=== PATIENT | female | born 1980 | race Caucasian/White ===

== ENCOUNTER → 2018-12-09 14:07 | Outpatient (CLI) | payer BC, SELFPAY ==
[2018-12-09 14:54] LABS: D-Dimer Quantitative (DVT/PE) < 0.27 FEU/ug/m (0.27-0.49)
[2018-12-09 14:56] LABS: AST(SGOT) 9 U/L (15-37); Alanine Aminotransfer ALT/SGPT 14 U/L (13-56); Albumin, Serum 4.2 g/dL (3.2-5.0); Alkaline Phosphatase 55 U/L (45-117); Anion Gap 3 (5-15); BUN 11 mg/dL (7-18); BUN/Creat Ratio 17.5 RATIO (10-20); Calcium,Total 9.1 mg/dL (8.5-10.1); Chloride 107 mmol/L (98-107); Creatinine, Serum 0.63 mg/dL (0.55-1.02); EST Glomerular Filtration Rate 113 mL/min (>60); Est Glom Filt Rate - Afr Amer 136 mL/min (>60); Globulin 4.1 g/dL (2.2-4.2); Glucose 90 mg/dL (74-106); Magnesium 2.2 mg/dL (1.6-2.6); Potassium 3.6 mmol/L (3.5-5.1); Protein, Total 8.3 g/dL (6.4-8.2); Sodium Level 138 mmol/L (136-145); Thyroid Stim Hormone (TSH) 1.07 uIU/mL (0.358-3.74)
== END ==
PROVIDERS: Referring Provider Registered Nurse; Visit Provider Registered Nurse
DX: R07.9 Chest pain, unspecified (principal)
CPT/HCPCS: 80053; 83735; 84443; 84484; 85379

== ENCOUNTER 2018-12-12 17:37 | Emergency (ER) | payer BC, SELFPAY ==
[2018-12-12 17:37] VITALS: BP 146/94; PULSE 94; RESP 16; TEMP 37.7; O2SAT 99; BMI 18.7
--- NOTE | 2018-12-12 18:22 | EKG12_ITS ---
Test Reason : CP Blood Pressure : / mmHG Vent. Rate : 088 BPM Atrial Rate : 088 BPM P-R Int : 158 ms QRS Dur : 076 ms QT Int : 382 ms P-R-T Axes : 072 024 069 degrees QTc Int : 462 ms Normal sinus rhythm with sinus arrhythmia Septal infarct , age undetermined Abnormal ECG Confirmed by EULOGIO YOON, HARRY ([id number]), editor greeting card CURTIS RAMÍREZ ([id number]) on 12/14/2018 12:50:36 PM Referred By: Nesha Cervantes Confirmed By:HARRY KRISHNAN MD
--- NOTE | 2018-12-12 18:25 | RAD_ITS ---
STUDY: X-RAY CHEST REASON FOR EXAM: Female, 38 years old. Chest pain TECHNIQUE: Single AP portable view of the chest. COMPARISON: None. FINDINGS: The lungs are clear and expanded. There is no demonstrated pleural abnormality. Normal size heart. Normal mediastinum and lidia. Normal visualized pulmonary arteries. Normal visualized aortic arch and descending thoracic aorta. Normal visualized thoracic spine. Normal visualized ribs, clavicles, and shoulders. There is no demonstrated abnormality of the visualized soft tissue structures of the upper abdomen. RAD/Chest 1 View (Portable) IMPRESSION: Normal x-ray examination of the chest. Electronically Signed: Delroy Garcia MD at 18:55 EDT , Service support ,
--- NOTE | 2018-12-12 18:30 | ED.RN ---
NO OLD EKGS IN MUSE
[2018-12-12] MEDS: Mag Hydrox/Al Hydrox/Simeth 30 ML UDC PO (18:40)
[2018-12-12] MEDS: 0.9% Normal Saline 1,000 ML 1000 ML IV (18:40)
[2018-12-12 18:54] LABS: Absolute Lymphocyte Count 1.29 X10^3/uL (0.83-4.51); Absolute Neutrophil Count 3.5 X10^3/uL (2.0-7.7); Basophil# 0.04 X10^3/uL; Basophil% 0.8 % (0-1); Eosinophil# 0.09 X10^3/uL; Eosinophils% 1.7 % (0-5); Hemoglobin 12.8 g/dL (12.0-15.0); Lymphocyte # 1.29 X10^3/ul (4.0); Lymphocyte % 24.4 % (19-41); Mean Corp Hgb Conc 34.6 g/dL (32-36); Mean Corpuscular Hgb 32.3 pg (27.0-32.0); Mean Corpuscular Volume 93.4 fL (81-99); Mean Platelet Vol. 9.7 fl (6.2-12.0); Monocyte# 0.38 X10^3/uL; Monocyte% 7.2 % (0-10); NRBC Flagged by Analyzer 0 % (0-5); Neutrophil # 3.47 X10^3/uL (2.7-7.7); Neutrophil % 65.5 % (47-70); Platelet Count 182 K/mm3 (150-450); RBC Distribution Width CV 11.5 % (11.6-14.6); RBC Distribution Width SD 39.3 fl (35.1-43.9); Red Blood Count 3.96 M/mm3 (4.2-5.4); White Blood Count 5.3 K/mm3 (4.4-11.0)
[2018-12-12 18:59] LABS: Erythrocyte Sedimentation Rate 4 mm/hr (0-20)
[2018-12-12 19:11] LABS: Internal QC Validated? YES +Cl - CLEAR BKGD; Pregnancy, Serum, hCG Quali. NEGATIVE Negative
[2018-12-12 19:20] LABS: ALB/GLOB Ratio 0.9 RATIO (0.9-2.4); AST(SGOT) 11 U/L (15-37); Alanine Aminotransfer ALT/SGPT 14 U/L (13-56); Albumin, Serum 3.7 g/dL (3.2-5.0); Alkaline Phosphatase 49 U/L (45-117); Anion Gap 7 (5-15); BUN 12 mg/dL (7-18); BUN/Creat Ratio 13.6 RATIO (10-20); Calcium,Total 8.6 mg/dL (8.5-10.1); Chloride 109 mmol/L (98-107); Creatinine, Serum 0.88 mg/dL (0.55-1.02); EST Glomerular Filtration Rate 76 mL/min (>60); Est Glom Filt Rate - Afr Amer 92 mL/min (>60); Estimated Creatinine Clearance 76.34 ml/min; Globulin 4.1 g/dL (2.2-4.2); Glucose 121 mg/dL (74-106); Lipase 96 U/L (73-393); Potassium 3.3 mmol/L (3.5-5.1); Protein, Total 7.8 g/dL (6.4-8.2); Sodium Level 141 mmol/L (136-145); Thyroid Stim Hormone (TSH) 2.15 uIU/mL (0.358-3.74)
--- NOTE | 2018-12-12 19:32 | ED.VISSUMM ---
- ER Visit Summary Date of Service: 12/12/18 Chief Complaint: Chest pain History of Present Illness: The patient is a [address] Villanueva. She reports that over the past 10 days she has had multiple episodes of chest pain. She reports the first 1 was 10 days ago and woke her from sleep. It lasted approximately an hour. She describes it as a burning and tightness. States that 4 days ago she had another episode while she was awake and laying in bed. States that is been off and on all weekend. She reports that all these episodes are burning and tightness. States pain is 10 out of 10 at worst and 4 out of 10 currently. It does seem to be worsened by exertion or laying flat. Is relieved by nothing. She is taken Zantac and Prevacid without relief. Does report that she has been nauseated and mildly short of breath. She has been burping more than usual. Patient denies any cardiac risk factors. She denies DVT risk factors. No personal family history of DVT. No recent travel. No ankle swelling or calf pain. Physical Examination: Vitals: Stable. Afebrile. General: Well-nourished and well-developed. Head: Normocephalic atraumatic. Neck: Supple, no lymphadenopathy. No JVD. Nontender. Cardiovascular: Regular rate and rhythm. No murmurs. Respiratory: No respiratory distress. Clear to auscultation bilaterally. Abdominal: Soft, mild epigastric tenderness to palpation, nondistended, normal bowel sounds. No guarding, rebound, or peritoneal signs. Back: Nontender. Extremities: Nontender, no edema. Skin: Normal color, no rash. Neurologic: Alert and oriented ?3. Cranial nerves II through XII are intact. Normal strength and sensation. Psych: Normal affect. Test Results: EKG is sinus at [address] changes. Troponin is negative. test negative. TSH is normal. Sed rate is 4. CBC is normal. Chem-7 shows a potassium 3.3 chloride 109. LFTs show an AST of 11. Lipase is normal. Clinical Impression(s) from Imaging Studies Chest X-Ray 12/12/18 18:25 IMPRESSION: Normal x-ray examination of the chest. Electronically Signed: Delroy Garcia MD at 18:55 EDT , Service support , Chest CTA 12/12/18 19:36 IMPRESSION: Normal CTA chest examination, without a demonstrated pulmonary embolism or arterial dissection. There is marked hyperexpansion consistent with COPD. There is no evidence of acute chest disease. Electronically Signed: Delroy Garcia MD at 20:10 EDT , Service support , Emergency Department Course and Treatment: Patient was given a GI cocktail with minimal relief. Treatment Plan: Patient is resting comfortably. Her heart score is 0. The onset of her pain when she is sleeping or laying down sounds more like reflux. She will be discharged with Protonix and Zantac. Instructed to follow-up with her primary care physician for further evaluation of her chest pain. She is also instructed to follow-up with Dr. Francois as I do think that she needs endoscopy to rule out an ulcer or something more ominous in her esophagus or stomach. Return to the emergency department for any worsening symptoms. Disposition: To home in improved and stable condition. Impression: 1. Chest pain, uncertain cause. This note was generated with [employer] dictation software. It may contain incorrect words, spelling, and punctuation that were not noted in review of the chart prior to signing ED Disposition - Plan for ED Patient: Disposition: Home or Assisted Living Instructions: CHEST PAIN, Uncertain Cause, GASTRITIS vs. ULCER Prescriptions: Pantoprazole Sodium [Protonix] 40 mg PO DAILY #30 tab Prescription Printed Ranitidine [Zantac] 300 mg PO DAILY #30 tab Prescription Printed Referrals: Adolph Owens MD [STAFF PHYSICIAN] - As soon as possible Harjeet Villanueva DO [Primary Care Provider] - 1-2 Days if not improving
--- NOTE | 2018-12-12 19:36 | CT_ITS ---
STUDY: CTA CHEST REASON FOR EXAM: Female, 38 years old. Chest pain. RADIATION DOSAGE (If Supplied By Facility): CTDIvol = ( 4.21 ) mGy, DLP = ( 135.78 ) mGycm TECHNIQUE: The examination was performed with the intravenous administration of 75 IV Isovue 370. Post-processing of the angiographic images was performed, with multiplanar reformation and 3D reconstruction. Individualized dose optimization techniques were used for this CT. COMPARISON: None. FINDINGS: Normal enhancement of the main pulmonary artery and right and left pulmonary arteries. Normal enhancement of the bilateral peripheral pulmonary arteries. There is no demonstrated pulmonary embolism. Normal thoracic aorta and visualized great vessels. There is no demonstrated aortic dissection. Normal heart and pericardium. Normal mediastinum. Normal hilar regions. Normal visualized trachea and bronchi. The lungs are hyper expanded, with flattening of the hemidiaphragms. Normal pulmonary parenchyma. Normal pleura. Normal chest wall structures. Normal osseous structures. Normal visualized upper abdomen. CT/CTA Chest W/WO Contrast IMPRESSION: Normal CTA chest examination, without a demonstrated pulmonary embolism or arterial dissection. There is marked hyperexpansion consistent with COPD. There is no evidence of acute chest disease. Electronically Signed: Delroy Garcia MD at 20:10 EDT , Service support ,
[2018-12-12 20:29] VITALS: BP 128/78; PULSE 76; RESP 16; O2SAT 99
== END 2018-12-12 20:30 | disposition home or self-care (01) ==
PROVIDERS: Emergency Provider Emergency Medicine; Family Provider Student in an Organized Health Care Education/Training Program; PCP Student in an Organized Health Care Education/Training Program
DX: R07.9 Chest pain, unspecified (principal)
CPT/HCPCS: 71045; 71275; 80053; 83690; 84443; 84484; 84703; 85025; 85652; 93005; 96360; 96361; 99285; J7030; Q9967; A4216

== ENCOUNTER → 2018-12-22 12:27 | Outpatient (CLI) | payer BC, SELFPAY ==
[2018-12-20 09:02] VITALS: BMI 18.7
--- NOTE | 2018-12-22 12:31 | STE_ITS ---
Reason For Study: Chest Pain Stress Results Protocol: Giuseppe Protocol Maximum Predicted HR: 182 bpm Target HR: 155 bpm % Maximum Predicted HR: 93 % DurationHeart Rate Stage (mm:ss) (bpm) BP Comment Baseline 81 100/60No Chest Pain Giuseppe Protocol Stage I 3:00 105 105/62No Chest Pain Giuseppe Protocol Stage II 3:00 125 116/60No Chest Pain Giuseppe Protocol Stage III 3:00 144 136/58No Chest Pain Giuseppe Protocol Stage IV 3:00 169 146/60No Chest Pain Recovery 99 102/60No Chest Pain Stress Duration: 12:00 mm:ss Maximum Stress HR: 169 bpm METS: 13 Baseline Echocardiogram Findings The estimated ejection fraction is 60 %. Stress Echo Wall motion Data Resting WM Intermediate WM Stress WM Resting Wall Motion Wall Motion Stress No regional wall motion No regional wall motion abnormalities noted. abnormalities noted. EKG Data The baseline ECG displays normal sinus rhythm. At peak exercise, upsloping ST changes only were noted, which did not meet the criteria for ischemia. Interpretation Summary The estimated ejection fraction is 60 %. Exercise stress test is negative for exercise induced CP or EKG or echocaardiographic changes of ischemia. Functional capacity is excellent for age Ordering Physician: Nesha Cervantes Referring Physician: Melo Villarreal MD Performed By: Kimi Shepherd, RDCS, RVT
== END ==
PROVIDERS: Family Provider Student in an Organized Health Care Education/Training Program; PCP Student in an Organized Health Care Education/Training Program; Referring Provider Registered Nurse; Visit Provider Registered Nurse
DX: I05.9 Rheumatic mitral valve disease, unspecified (principal); R07.9 Chest pain, unspecified
CPT/HCPCS: 93017; 93350

== ENCOUNTER 2019-01-11 08:25 | Day surgery (SDC) | payer BC, SELFPAY ==
[2018-12-20 09:02] VITALS: BMI 18.7
--- NOTE | 2018-12-21 01:18 | HP_ITS ---
Intake Vital Signs 12/20/18 Body Mass Index (BMI) 18.7 12/20/18 Height 5 ft 8 in 12/20/18 Weight: 125 lb 3 oz 12/20/18 Body Mass Index (BMI) 19.0 12/20/18 Blood Pressure 113/75 12/20/18 Blood Pressure Location Rt brachial 12/20/18 Respiratory Rate 16 12/20/18 Pulse Rate 84 12/20/18 Pulse Ox 99 Intake Visit Reasons: ER FU Gastritis/Ulcer Chief Complaint: abd pain Correction Officer Supervisor Required: No Is patient in pain?: No Allergies No Known Allergies Allergy (Verified 12/20/18 09:00) Medications Ranitidine [Zantac] 300 mg PO DAILY #30 tab 12/12/18 [Rx Confirmed 12/20/18] pantoprazole 40 mg tablet,delayed release 40 mg PO DAILY 12/20/18 [History Confirmed 12/20/18] Is last menstrual period known: No Post menopausal: No Patient : No PFSH Medical History GERD (gastroesophageal reflux disease) (Acute) Surgical History History of section (Acute ~2010) History of section (Acute ~2012) Family History Mother Diabetes Thyroid disorder Breast cancer Ulcer Father Hyperlipidemia Social History (Updated 12/21/18 @ 13:19 by Adolph Owens MD) Smoking Status: Never smoker HPI HPI HPI: DEEPAK MORALES, is a 38 F who presents to the office today for HPI HPI Surgical H&P: Yes HPI: DEEPAK MORALES, is a 38 F who presents to the office today for Evaluation of dysphagia and chest discomfort. Patient was recently seen in [facility] emergency department on 12/12/2018. She was having some nausea chest discomfort and woke up in the 2 in the morning with this odd sensation in the mid chest area. She described it as burning and tightness and she has had numerous episodes off and on over the last several weeks. She has been started on Zantac and Protonix and this is starting to take care of some of the discomfort.She has no bitter taste in her mouth and she has no obvious triggers that are causing this discomfort. ROS General General: No weight change, appetite, fatigue, colon cancer, breast cancer or weakness HEENT HEENT: No difficulty swallowing, eye injury, eye surgery, swollen glands or hoarseness Endo Endocrine: No thyroid disease, diabetes mellitus, thyroid cancer, Hair loss, heat intolerance or cold intolerance Cardio Cardiovascular: No murmur, pacemaker, heart disease, atrial fibrillation, high blood pressure, heart attack, heart stent, palpitations, shortness of breat with exertion or chest pain Resp Respiratory: No shortness of breath, No sleep apnea, No cough, No COPD, No asthma, No emphysema, No wheezing Gastro Gastrointestinal: No abdominal pain, No nausea or vomiting, No diarrhea, No constipation, No blood in stool, Yes acid reflux, No hemorrhoids, No ulcers, No gallbladder problem, No black,tarry stools Toni Hematologic: No blood thinners, No blood disorders, No bleeding, No anemia, No blood clots Neuro Neurologic: No weakness Exam Const General: no acute distress, well developed, well hydrated Orientation: oriented to person, oriented to place, oriented to time [facility] Head: normocephalic, atraumatic Ears: external ears normal Mouth: moist mucous membranes Eyes Sclera: sclerae normal Pupils: normal by confrontation Neck Neck: no lymphadenopathy noted Neck mass: No Thyroid: thyroid normal, symmetrical Chest Chest palpation & inspection: normal inspection of the chest Resp Effort & Inspection: normal respiratory effort Auscultation: clear to auscultation bilaterally Percussion: percussion normal Cardio Rate: regular rate Rhythm: regular rhythm Heart Sounds: no murmurs GI Palpation: soft, no hepatosplenomegaly, no masses, nontender Rectal Exam: other Other: Rectal exam deferred. Extrem General: normal to inspection, no clubbing, cyanosis or edema Assessment & Plan Problems 1. Esophageal dysphagia R13.10 2. Other chest pain R07.89; R07.8 Plan I have discussed the above with the patient. I have offered the patient esophagogastroduodenoscopy for evaluation. I have explained the risks/benefits of the procedure and described the procedure. I have discussed the risks with the patient, including but not limited to: infection, bleeding, perforation of the GI tract requiring emergency surgery, inability to complete the procedure, injury to any internal organs, complications of anesthesia, etc. - the patient understands and agrees to proceed. I have answered all the patient's questions to the patient's satisfaction and the patient has no further questions. The patient has been given instructions for the colon cleansing preparation. If the EGD is entirely negative then I think it would be carmona for us to give her approximately 2 to 3 months on the proton pump inhibitor therapy. If this is ineffective in taking away her symptoms then she will need to have esophageal manometry Orders Orders: EGD 12/20/18 Coding Level of Care Code Off vis,new,level 3 Diagnoses Esophageal dysphagia R13.10 ??Dysphagia type: esophageal phase Other chest pain R07.89; R07.8 ??Chest pain type: other chest pain 12/21/18 1319 <Electronically signed by Adolph garibay MD> Date _ Adolph Owens MD I have re-examined the patient. There are no clinical changes since date of exam.
[2019-01-11 08:45] VITALS: BP 116/82; PULSE 81; RESP 16; TEMP 37.1; O2SAT 100; BMI 19.5
[2019-01-11 08:51] LABS: Internal QC Validated? YES +Cl - CLEAR BKGD; Pregnancy, Urine Negative Negative
[2019-01-11] MEDS: Lactated Ringers 1,000 ML 100 ML IV (09:10)
--- NOTE | 2019-01-11 09:30 | IMM_PTH ---
PATIENT: DEEPAK MORALES LOC: EN U#:[id number] AGE/SX: 38/F ROOM: RE01/11/[address]: Dr. Adolph Owens MD : 1980 BED: DIS: 01/11/2019 SPEC #: [id number] RECD: 01/11/19 13:45 STATUS: ANTHONY REQ #: [id number] DIGNA: 01/11/19 09:[address]: Adolph Owens DEPT: IMMUNOHISTOCHEMISTRY RECD BY: Aida Freeman ENTERED: 01/11/19 13:45 SP TYPE: IMMUNO OTHR DR: Dr. Harjeet Villanueva DO Tissues: Stomach, NOS Procedures: H Pylori (initial) PHYSICIAN & INSTITUTION [place] [id number] SPECIMEN INFORMATION: Tissue Source: Antral biopsy Clinical Info: pain, burning, dysphagia Specimen Number: [id number] CPT code: 30678 METHODOLOGY: Deparaffinized sections of prefer/formalin-fixed tissue or PAP/DQ stained slides are incubated with monoclonal/polyclonal antibodies/oligonucleotide probes. Localization is made via biotin free immunoperoxidase method. Appropriate controls are performed and reacted as expected. Results on target cell population are indicated in the following table: RESULTS: ANTIBODY / CLONE RESULT H Pylori (polyclonal) negative These tests were developed and their performance characteristics determined by [facility]. They may not have been cleared or approved by the U.S. Food and Drug Administration. The FDA has determined that such clearance or approval is not necessary. INTERPRETATION: Antral biopsy: Negative for Helicobacter pylori organisms. FRANCISCO:lois 01/12/19
--- NOTE | 2019-01-11 09:30 | EGD_PTH ---
PATIENT: DEEPAK MORALES LOC: EN U#:[id number] AGE/SX: 38/F ROOM: RE01/11/[address]: Dr. Adolph Owens MD : 1980 BED: DIS: 01/11/2019 SPEC #: [id number] RECD: 01/11/19 12:26 STATUS: ANTHONY CRUZ #: [id number] DIGNA: 01/11/19 09:[address]: Adolph Owens DEPT: SURGICAL PATHOLOGY RECD BY: Pippa Castillo ENTERED: 01/11/19 14:11 SP TYPE: EGD BIOPSY OTHR DR: Dr. Harjeet Villanueva, DO Tissues: Gastric mucous membrane Procedures: Surgery Specimen Level IV [place]ER [place] [place] DIAGNOSIS: Pain, burning, dysphagia TISSUE SUBMITTED: Antral biopsy MICROSCOPIC DIAGNOSIS Antral biopsy: Mild gastritis. See microscopic description and comment. SJ:lois 01/12/19 COMMENT The results of immunohistochemistry for Helicobacter pylori will be reported separately ([id number]). MICROSCOPIC DESCRIPTION Slides are reviewed. The specimen shows fragments of gastric mucosa with chronic inflammatory cell infiltrates in the lamina propria consisting of lymphocytes and plasma cells, consistent with mild chronic gastritis. GROSS DESCRIPTION Received in fixative is one container labeled with the patient's name and designated antral biopsy. The specimen consists of two irregular fragments of light gonzales soft tissue that in aggregate measure 0.3 x 0.2 x 0.1 cm. The specimen is totally submitted in one cassette. / SJ:rg 01/11/19 TC:4 CPT: 57742
[2019-01-11 10:05] VITALS: BP 116/82; BP 95/67; PULSE 70; RESP 16; TEMP 36.8; O2SAT 97
--- NOTE | 2019-01-11 10:07 | OP.ENDO_ITS ---
01/11/2019 Harjeet Villanueva [address] [place] [address] Re : Upper GI endoscopy procedure for Karie Christensen Dear Dr. Villanueva This procedure was performed on Friday, January 11, 2019. My impressions and recommendations are as follows: Impressions : - Z-line regular, 40 cm from the incisors. No specimens collected. - Normal esophagus. - Normal stomach. Biopsied. - Normal examined duodenum. No specimens collected. Recommendations : - Discharge patient to home. - Resume previous diet. - Continue present medications. - Await pathology results. - Perform ambulatory pH monitoring at appointment to be scheduled. - Perform ambulatory esophageal manometry at appointment to be scheduled. My findings are described in the full procedure note, which is enclosed. If I can be of further assistance, please feel free to contact me at Doctor phone number(s): , Fax: [phone], Work: . Sincerely, MD Adolph Bill MD 01/11/2019 10:07:05 AM This report has been signed electronically.
[2019-01-11 10:10] VITALS: BP 116/82; BP 94/63; PULSE 67; RESP 16; O2SAT 97
[2019-01-11 10:15] VITALS: BP 116/82; BP 99/73; PULSE 85; RESP 16; O2SAT 98
[2019-01-11 10:20] VITALS: BP 100/73; BP 116/82; PULSE 74; RESP 16; TEMP 36.6; O2SAT 97
[2019-01-11 10:42] VITALS: BP 116/82
== END 2019-01-11 10:58 | disposition home or self-care (01) ==
LOC: EN 08:26 → AC 08:27
PROVIDERS: Anesthesiology; Family Provider Student in an Organized Health Care Education/Training Program; PCP Student in an Organized Health Care Education/Training Program; Referring Provider Student in an Organized Health Care Education/Training Program; Visit Provider Surgery
PROC: 0DJ08ZZ Inspection of Upper Intestinal Tract, Via Natural or Artificial Opening Endoscopic (ICD-10-PCS; CPT 43235; principal; 2019-01-11 09:25)
DX: K29.70 Gastritis, unspecified, without bleeding (principal); R13.14 Dysphagia, pharyngoesophageal phase; Z79.899 Other long term (current) drug therapy; K21.9 Gastro-esophageal reflux disease without esophagitis; R07.89 Other chest pain
CPT/HCPCS: 43239; 81025; 88305; 88342; J7120; J2405

== ENCOUNTER → 2019-03-07 08:56 | Outpatient (CLI) | payer BC, SELFPAY ==
--- NOTE | 2019-03-07 09:00 | BI_ITS ---
MAMMOGRAPHY - UNILATERAL DIAGNOSTIC: RIGHT BREAST REASON FOR EXAM: Female, 38 years old. Right breast lump. PERTINENT HISTORY: Mother with breast cancer. TECHNIQUE: Digital unilateral breast simin (3D mammographic acquisition) in the CC and MLO projections. 2-D mediolateral oblique (MLO) and craniocaudad (CC) views of both breasts were obtained. CAD: Full Field Digital Mammography with Computer Added Detection was performed. COMPARISON: Comparison is made with prior outside examination dated May 13, 2018. FINDINGS: Breast Composition: The breasts are extremely dense, which lowers the sensitivity of mammography. There are no dominant masses or suspicious calcifications. No other significant abnormalities are identified. There has been no significant change since the prior study. BI/DIAG MAMM W/CAD, UNILAT IMPRESSION: Stable unilateral diagnostic mammogram. With the patient's history of a palpable abnormality in the right breast, correlation with ultrasound is recommended. ASSESSMENT CATEGORY: BIRADS Category 0: Incomplete. Need additional imaging evaluation. A letter regarding these results will be sent to the patient by the facility within 30 days. Approximately 10% of breast cancers are not detected by mammography. A normal mammogram should not delay biopsy of a clinically suspicious abnormality. Electronically Signed: Roge North, at 10:38 EST , Service support ,
--- NOTE | 2019-03-07 09:01 | US_ITS ---
STUDY: ULTRASOUND BREAST - RIGHT REASON FOR EXAM: Female, 38 years old. Right retroareolar lump. TECHNIQUE: Axial and longitudinal images of the RIGHT breast were performed with a high resolution ultrasound transducer. # OF IMAGES: 16 COMPARISON: Comparison is made with prior mammogram done earlier today. FINDINGS: RIGHT Breast: The retroareolar region of the right breast was examined by ultrasound. No sonographic abnormality is seen. US/Breast Limited Unilateral IMPRESSION: No sonographic abnormality seen. ASSESSMENT CATEGORY: BIRADS Category 1: Negative. A letter regarding these results will be sent to the patient by the facility within 30 days. Electronically Signed: Roge North, at 13:38 EST , Service support ,
== END ==
PROVIDERS: Family Provider Student in an Organized Health Care Education/Training Program; PCP Student in an Organized Health Care Education/Training Program; Visit Provider Nurse Practitioner Family
DX: N63.10 Unspecified lump in the right breast, unspecified quadrant (principal); Z80.3 Family history of malignant neoplasm of breast
CPT/HCPCS: 76642; 77061; 77065; G0279

== ENCOUNTER 2019-12-19 16:07 | Outpatient (RCR) | payer BC, SELFPAY | END 2020-01-03 23:59 | LOC: EMPH 16:07 | PROVIDERS: PCP Student in an Organized Health Care Education/Training Program; Referring Provider Family Medicine Geriatric Medicine; Visit Provider Family Medicine Geriatric Medicine | DX: Z11.59 Encounter for screening for other viral diseases (principal) | CPT/HCPCS: 87635; U0003 ==

== ENCOUNTER 2020-03-17 12:51 | Outpatient (RCR) | payer BC, SELFPAY | END 2020-04-04 23:59 | LOC: EMPH 12:51 | PROVIDERS: PCP Student in an Organized Health Care Education/Training Program; Referring Provider Family Medicine Geriatric Medicine; Visit Provider Family Medicine Geriatric Medicine | DX: Z03.818 Encounter for observation for suspected exposure to other biological agents ruled out (principal) | CPT/HCPCS: 87426 ==

== ENCOUNTER 2020-04-18 12:44 | Outpatient (RCR) | payer BC, SELFPAY | END 2020-05-05 23:59 | LOC: EMPH 12:44 | PROVIDERS: PCP Student in an Organized Health Care Education/Training Program; Referring Provider Family Medicine Geriatric Medicine; Visit Provider Family Medicine Geriatric Medicine | DX: Z03.818 Encounter for observation for suspected exposure to other biological agents ruled out (principal) | CPT/HCPCS: 87426 ==

== ENCOUNTER 2020-06-09 08:11 | Outpatient (RCR) | payer BC, SELFPAY | END 2020-07-03 23:59 | LOC: EMPH 08:11 | PROVIDERS: PCP Student in an Organized Health Care Education/Training Program; Referring Provider Family Medicine Geriatric Medicine; Visit Provider Family Medicine Geriatric Medicine | DX: Z03.818 Encounter for observation for suspected exposure to other biological agents ruled out (principal) | CPT/HCPCS: 87426 ==

== ENCOUNTER 2021-02-06 08:03 | Outpatient (RCR) | payer BC, SELFPAY | END 2021-03-04 23:59 | LOC: EMPH 08:03 | PROVIDERS: PCP Student in an Organized Health Care Education/Training Program; Visit Provider Family Medicine Geriatric Medicine | DX: Z03.818 Encounter for observation for suspected exposure to other biological agents ruled out (principal) | CPT/HCPCS: 87426 ==

== ENCOUNTER 2021-05-29 15:00 | Outpatient (RCR) | payer BC, SELFPAY | END 2021-06-02 23:59 | LOC: EMPH 15:00 | PROVIDERS: PCP Student in an Organized Health Care Education/Training Program; Referring Provider Family Medicine Geriatric Medicine; Visit Provider Family Medicine Geriatric Medicine | DX: Z03.818 Encounter for observation for suspected exposure to other biological agents ruled out (principal) | CPT/HCPCS: 87426 ==

== ENCOUNTER 2021-06-12 09:53 | Outpatient (CLI) | payer BC, SELFPAY ==
--- NOTE | 2021-06-12 09:55 | BI_ITS ---
MAMMOGRAPHY - BILATERAL SCREENING REASON FOR EXAM: Female, 40 years old. Routine annual screening examination. PERTINENT HISTORY: Mother with breast cancer. TECHNIQUE: Digital bilateral breast delaney (3D mammographic acquisition) in the CC and MLO projections. 2-D mediolateral oblique (MLO) and craniocaudad (CC) views of both breasts were obtained. CAD: Full Field Digital Mammography with Computer Added Detection was performed. COMPARISON: Comparison is made with prior abdomen examination dated 05/18/2019 and 06/11/2020. FINDINGS: Breast Composition: The breasts are extremely dense, which lowers the sensitivity of mammography. There are no dominant masses or suspicious calcifications. No other significant abnormalities are identified. There has been no significant change since the prior study. BI/SCRN MAMM (CAD)W/DELANEY BILAT IMPRESSION: Stable bilateral screening mammogram. Yearly follow-up mammogram recommended. (A) ASSESSMENT CATEGORY: BIRADS Category 1: Negative. A letter regarding these results will be sent to the patient by the facility within 30 days. Approximately 10% of breast cancers are not detected by mammography. A normal mammogram should not delay biopsy of a clinically suspicious abnormality. [id number] Electronically Signed: Roge North MD at 10:43 EST ,
== END 2021-06-12 23:59 | disposition home or self-care (01) ==
PROVIDERS: PCP Student in an Organized Health Care Education/Training Program; Visit Provider Student in an Organized Health Care Education/Training Program
DX: Z12.31 Encounter for screening mammogram for malignant neoplasm of breast (principal)
CPT/HCPCS: 77063; 77067; 82274

== ENCOUNTER 2021-06-12 10:27 | Outpatient (CLI) | payer BC, SELFPAY ==
--- NOTE | 2021-06-12 10:45 | RAD_ITS ---
STUDY: X-RAY - PELVIS AND LEFT HIP REASON FOR EXAM: Female, 40 years old. Left hip pain. TECHNIQUE: 3 views of the pelvis and hip. COMPARISON: None. FINDINGS: There is a non-specific bowel gas pattern. Normal visualized soft tissue structures. Normal bilateral iliac wings, sacroiliac joints and visualized sacrum. Normal bilateral superior and inferior pubic rami. Normal pubic symphysis. Normal bilateral ischial tuberosities. Normal visualized femoral head. Normal acetabulum. Normal hip joint. RAD/HIP, UNI W/ Pelvis 2-3 Views IMPRESSION: Normal x-ray examination of the pelvis and hip. Electronically Signed: Terence Fontanez MD at 14:00 EST ,
== END 2021-06-12 23:59 | disposition home or self-care (01) ==
LOC: RAD 10:28
PROVIDERS: PCP Student in an Organized Health Care Education/Training Program; Referring Provider Nurse Practitioner Family; Visit Provider Nurse Practitioner Family
DX: M25.552 Pain in left hip (principal)
CPT/HCPCS: 73502

== ENCOUNTER 2021-06-14 07:52 | Outpatient (CLI) | payer BC, SELFPAY ==
--- NOTE | 2021-06-14 07:55 | US_ITS ---
INDICATION: flatulence, gas pain- lower abd pain , EXAMINATION: Ultrasound US Abdomen Complete TECHNIQUE: Marcos-scale and color Doppler imaging was performed of the abdomen. COMPARISON: None. FINDINGS: LIVER: There is normal echotexture. No focal hepatic lesion. No intrahepatic biliary ductal dilatation. There is no free fluid. GALLBLADDER AND BILIARY TREE: No shadowing gallstone, pericholecystic fluid or gallbladder wall thickening is demonstrated. The proximal common bile duct measures 4 mm, which is within normal limits for the patient''s age. The gallbladder wall measures 2 mm. SONOGRAPHIC ORELLANA''S SIGN: Negative. PANCREAS: No focal abnormality is demonstrated in the pancreas. No pancreatic ductal dilatation. SPLEEN: The spleen is normal in size and homogeneous in echotexture. KIDNEYS: There is no hydronephrosis bilaterally. No stones are seen bilaterally. Within the inferior pole of the right kidney is a small circumscribed echogenic focus measuring 3 x 3 x 3 mm in size. No posterior shadowing is seen. This is nonspecific and may represent small hemorrhagic cyst. No other masses or fluid collections are seen in the bilateral kidneys. VESSELS: Submitted longitudinal images of the intra-abdominal aorta demonstrate no gross abnormalities and are unremarkable. The IVC is patent. US/Abdomen Complete IMPRESSION: 1. No sonographic evidence of acute cholecystitis, cholelithiasis or choledocholithiasis. 2. Small echogenic focus within the inferior pole of the right kidney measuring 3 x 3 x 3 mm. No posterior shadowing seen. This is nonspecific but could represent a small hemorrhagic cyst. 3. The remainder of the exam is unremarkable. RECOMMENDATIONS: Further evaluation of the right kidney echogenic focus can be obtained on cross-sectional imaging as clinical indication warrants. Electronically Signed: Vj Campbell MD at 9:22 EST ,
== END 2021-06-14 23:59 | disposition home or self-care (01) ==
LOC: US 07:53
PROVIDERS: PCP Student in an Organized Health Care Education/Training Program; Visit Provider Nurse Practitioner Family
DX: R14.0 Abdominal distension (gaseous) (principal); K62.5 Hemorrhage of anus and rectum
CPT/HCPCS: 76700

== ENCOUNTER 2021-06-18 08:51 | Outpatient (CLI) | payer BC, SELFPAY ==
--- NOTE | 2021-06-18 08:58 | BD_ITS ---
STUDY: DUAL ENERGY X-RAY ABSORPTIOMETRY / DXA REASON FOR EXAM: Female, 40 years old. HIP PAIN -- LEFT TECHNIQUE: Bone Mineral Density (BMD) measurements of lumbar spine and bilateral hips were obtained. COMPARISON: None. FINDINGS: Lumbar Spine (L1-L4): g/cm2 (0.897) / T-score (-1.4) / Z-score (-1.1) Findings are suggestive of osteopenia with a low fracture risk. Left Femur Total: g/cm2 (0.784) / T-score (-1.3) / Z-score (-1.1) Left Femoral Neck: g/cm2 (0.650) / T-score (-1.8) / Z-score (-1.5) Right Femur Total: g/cm2 (0.767) / T-score (-1.4) / Z-score (-1.3) Right Femoral Neck: g/cm2 (0.681) / T-score (-1.5) / Z-score (-1.2) BD/Dexa Bone Density Study IMPRESSION: The patient is considered osteopenic as outlined below according to World Frank Organization (WHO) criteria with a moderate fracture risk. Reference Information: The T-score is the number of standard deviations above or below the standard which is normal for young adults at their peak bone mineral density. The World Health Organization (WHO) interprets the T-scores as follows: Above -1 Normal bone density Between -1 and -2.5 Osteopenia Equal to / or below -2.5 Osteoporosis As a practical clinical guideline, osteopenia may be graded as follows: Mild -1 through -1.5 Moderate -1.6 through -2.0 Severe -2.1 through -2.4 The Z-score is the number of standard deviations above or below age-matched controls. A Z-score of less than -1.5 would be considered abnormal. References: 1. NIH Osteoporosis and Related Bone Diseases www osteo.org 2. International Society for Clinical Densitometry www iscd.org 3. National Osteoporosis Foundation www nof.org Electronically Signed: Roge North MD at 14:56 EDT ,
== END 2021-06-18 23:59 | disposition home or self-care (01) ==
LOC: OPBD 08:52
PROVIDERS: PCP Student in an Organized Health Care Education/Training Program; Referring Provider Nurse Practitioner Family; Visit Provider Nurse Practitioner Family
DX: M25.552 Pain in left hip (principal)
CPT/HCPCS: 77080

== ENCOUNTER 2021-06-23 11:30 | Outpatient (CLI) | payer BC, SELFPAY ==
--- NOTE | 2021-06-23 11:38 | US_ITS ---
STUDY: ULTRASOUND OF THE FEMALE PELVIS - COMPLETE REASON FOR EXAM: Female, 40 years old. PELVIC CRAMPING LMP: 06/15/2021 TECHNIQUE: Transabdominal and Transvaginal TECHNICAL QUALITY: Adequate. COMPARISON: None. FINDINGS: The uterus is anteverted and is in a midline position. The uterus measures 8.7 x 5.6 x 4.1 cm. Normal uterine cervix. The endometrium measures 6 mm in thickness, and is hyperechoic. There is no demonstrated endometrial mass. There is no demonstrated myometrial mass. I.U.D. - The patient does not have an I.U.D. The right ovary is visualized. The right ovary measures 1.9 x 1.5 x 1.1 cm. There is no right ovarian cyst or ovarian mass. There is no visualized right adnexal mass or complex lesion. There is normal arterial and normal venous vascularity. The left ovary is visualized. The left ovary measures 2.2 x 2.4 x 2.8 cm. There is no left ovarian cyst or ovarian mass. There is no visualized left adnexal mass or complex lesion. There is normal arterial and normal venous vascularity. There is no fluid in the cul-de-sac. US/Pelvic (Non ) IMPRESSION: Normal female pelvis. Electronically Signed: Mark James DO at 17:00 EDT ,
--- NOTE | 2021-06-23 11:38 | US_ITS ---
STUDY: ULTRASOUND OF THE FEMALE PELVIS - COMPLETE REASON FOR EXAM: Female, 40 years old. PELVIC CRAMPING LMP: 06/15/2021 TECHNIQUE: Transabdominal and Transvaginal TECHNICAL QUALITY: Adequate. COMPARISON: None. FINDINGS: The uterus is anteverted and is in a midline position. The uterus measures 8.7 x 5.6 x 4.1 cm. Normal uterine cervix. The endometrium measures 6 mm in thickness, and is hyperechoic. There is no demonstrated endometrial mass. There is no demonstrated myometrial mass. I.U.D. - The patient does not have an I.U.D. The right ovary is visualized. The right ovary measures 1.9 x 1.5 x 1.1 cm. There is no right ovarian cyst or ovarian mass. There is no visualized right adnexal mass or complex lesion. There is normal arterial and normal venous vascularity. The left ovary is visualized. The left ovary measures 2.2 x 2.4 x 2.8 cm. There is no left ovarian cyst or ovarian mass. There is no visualized left adnexal mass or complex lesion. There is normal arterial and normal venous vascularity. There is no fluid in the cul-de-sac. US/Transvaginal Non- IMPRESSION: Normal female pelvis. Electronically Signed: Mark James DO at 17:00 EDT ,
== END 2021-06-23 23:59 | disposition home or self-care (01) ==
LOC: US 11:34
PROVIDERS: PCP Student in an Organized Health Care Education/Training Program; Referring Provider Nurse Practitioner Family; Visit Provider Nurse Practitioner Family
DX: R10.2 Pelvic and perineal pain (principal)
CPT/HCPCS: 76830; 76856

== ENCOUNTER → 2021-08-14 | Outpatient (CLI) | payer BC, SELFPAY ==
[2021-08-14 16:11] LABS: ALB/GLOB Ratio 0.9 RATIO (0.9-2.4); AST(SGOT) 13 U/L (15-37); Alanine Aminotransfer ALT/SGPT 21 U/L (13-56); Albumin, Serum 4.3 g/dL (3.2-5.0); Alkaline Phosphatase 59 U/L (45-117); Anion Gap 5 (5-15); BUN 9 mg/dL (7-18); BUN/Creat Ratio 13.8 RATIO (10-20); CRP < 2.90 mg/L (0.0-3.0); Calcium,Total 9.3 mg/dL (8.5-10.1); Chloride 103 mmol/L (98-107); Creatinine, Serum 0.65 mg/dL (0.55-1.02); EST Glomerular Filtration Rate 106 mL/min (>60); Est Glom Filt Rate - Afr Amer 129 mL/min (>60); Ferritin 22 ng/mL (8-252); Globulin 4.8 g/dL (2.2-4.2); Glucose 84 mg/dL (74-106); LDH 134 U/L (84-246); Potassium 3.3 mmol/L (3.5-5.1); Protein, Total 9.1 g/dL (6.4-8.2); Sodium Level 137 mmol/L (136-145)
[2021-08-14 16:18] LABS: Absolute Lymphocyte Count 1.74 X10^3/uL (0.83-4.51); Basophil# 0.06 X10^3/uL; Basophil% 0.9 % (0-1); Eosinophil# 0.15 X10^3/uL; Eosinophils% 2.3 % (0-5); Hematocrit 38.7 % (37-47); Hemoglobin 13.3 g/dL (12.0-15.0); Lymphocyte # 1.74 X10^3/ul (0.83-4.51); Lymphocyte % 27.1 % (19-41); Mean Corp Hgb Conc 34.4 g/dL (32-36); Mean Corpuscular Hgb 32.1 pg (27.0-32.0); Mean Corpuscular Volume 93.5 fL (81-99); Mean Platelet Vol. 10.1 fl (6.2-12.0); Monocyte# 0.44 X10^3/uL; Monocyte% 6.8 % (0-10); NRBC Flagged by Analyzer 0 % (0-5); Neutrophil # 4.02 X10^3/uL (2.7-7.7); Neutrophil % 62.6 % (47-70); Platelet Count 223 K/mm3 (150-450); RBC Distribution Width CV 11.8 % (11.6-14.6); RBC Distribution Width SD 40.9 fl (35.1-43.9); Red Blood Count 4.14 M/mm3 (4.2-5.4); White Blood Count 6.4 K/mm3 (4.4-11.0)
[2021-08-14 16:31] LABS: HIV - WCH Non-Reactive (Nonreactive)
[2021-08-14 16:34] LABS: International Normalized Ratio 1.1; Prothrombin Time (Protime)PT. 13.8 SECONDS (11.7-14.9)
[2021-08-14 16:39] LABS: Erythrocyte Sedimentation Rate 9 mm/hr (0-30)
[2021-08-18 11:07] LABS: Albumin 4.1 g/dL (2.9-4.4); Alpha-1-Globulins 0.3 g/dL (0.0-0.4); Alpha-2-Globulins 0.7 g/dL (0.4-1.0); Gamma Globulin 1.8 g/dL (0.4-1.8); Immunoglobulin A 309 mg/dL (87-352); Immunoglobulin G 1839 mg/dL (586-1602); Immunoglobulin M 155 mg/dL (26-217); PROEL- TOTAL PROTEIN 8.2 g/dL (6.0-8.5)
[2021-08-18 15:08] LABS: Anti-Centromere B Ab <0.2 AI (0.0-0.9); Anti-Chromatin <0.2 AI (0.0-0.9); Anti-Jo <0.2 AI (0.0-0.9); Anti-Scleroderma-70 AB 0.3 AI (0.0-0.9); RNP Ab <0.2 AI (0.0-0.9); SJOGREN'S Anti-SS-A test < 0.2 AI (0.0-0.9); SJOGREN'S Anti-SS-B test < 0.2 AI (0.0-0.9); Smith Ab <0.2 AI (0.0-0.9)
[2021-08-18 16:36] LABS: Anti-Mitochondrial AB <20.0 Units (0.0-20.0); Anti-dsDNA Ab 2 IU/mL (0-9)
[2021-08-19 22:06] LABS: Angiotensin Convert Enzyme 26 U/L (14-82); Ceruloplasmin 24.7 mg/dL (19.0-39.0); Cytoplasmic Ab (C-ANCA) <1:20 titer (Neg:<1:20); HEPATITIS B SURFACE AG Negative (Negative); Hep C Antibodies 0.1 s/co ratio (0.0-0.9); Hepatitis A IgM Antibody Negative (Negative); Hepatitis B Core AB IgM Negative (Negative)
[2021-08-19 22:15] LABS: AFP, Tumor Marker 1.2 ng/mL (0.0-6.4); Anti-Smooth Muscle ABS 6 Units (0-19); Copper, Serum or Plasma 113 ug/dL (80-158); Haptoglobin 109 mg/dL (33-278); Perinuclear Ab (P-ANCA) <1:20 titer (Neg:<1:20)
== END | disposition home or self-care (01) ==
LOC: LAB 14:39
PROVIDERS: PCP Student in an Organized Health Care Education/Training Program; Referring Provider Internal Medicine Gastroenterology; Visit Provider Internal Medicine Gastroenterology
DX: K62.5 Hemorrhage of anus and rectum (principal); Z83.79 Family history of other diseases of the digestive system
CPT/HCPCS: 36415; 80053; 80074; 82105; 82140; 82164; 82390; 82525; 82728; 82784; 83010; 83036; 83516; 83615; 84165; 85025; 85610; 85652; 86140; 86225; 86235; 86256; 86334; 86703

== ENCOUNTER → 2021-08-27 | Outpatient (CLI) | payer BC, SELFPAY ==
[2021-08-27 13:30] LABS: Erythrocyte Sedimentation Rate 5 mm/hr (0-30)
[2021-08-27 13:32] LABS: Absolute Lymphocyte Count 1.78 X10^3/uL (0.83-4.51); Basophil# 0.06 X10^3/uL; Basophil% 0.9 % (0-1); Eosinophil# 0.09 X10^3/uL; Eosinophils% 1.4 % (0-5); Hematocrit 39.5 % (37-47); Hemoglobin 13.3 g/dL (12.0-15.0); Lymphocyte # 1.78 X10^3/ul (0.83-4.51); Lymphocyte % 28.1 % (19-41); Mean Corp Hgb Conc 33.7 g/dL (32-36); Mean Corpuscular Hgb 31.9 pg (27.0-32.0); Mean Corpuscular Volume 94.7 fL (81-99); Monocyte# 0.44 X10^3/uL; NRBC Flagged by Analyzer 0 % (0-5); Neutrophil # 3.95 X10^3/uL (2.7-7.7); Neutrophil % 62.4 % (47-70); Platelet Count 205 K/mm3 (150-450); RBC Distribution Width SD 41.9 fl (35.1-43.9); Red Blood Count 4.17 M/mm3 (4.2-5.4); White Blood Count 6.3 K/mm3 (4.4-11.0)
[2021-08-27 13:54] LABS: AST(SGOT) 8 U/L (15-37); Alanine Aminotransfer ALT/SGPT 15 U/L (13-56); Albumin, Serum 4.1 g/dL (3.2-5.0); Alkaline Phosphatase 53 U/L (45-117); Anion Gap 6 (5-15); BUN 9 mg/dL (7-18); BUN/Creat Ratio 14.8 RATIO (10-20); CRP < 2.90 mg/L (0.0-3.0); Calcium,Total 9.2 mg/dL (8.5-10.1); Chloride 105 mmol/L (98-107); Creatinine, Serum 0.61 mg/dL (0.55-1.02); EST Glomerular Filtration Rate 115 mL/min (>60); Est Glom Filt Rate - Afr Amer 139 mL/min (>60); Globulin 4.3 g/dL (2.2-4.2); Glucose 82 mg/dL (74-106); Potassium 3.4 mmol/L (3.5-5.1); Protein, Total 8.4 g/dL (6.4-8.2); Sodium Level 137 mmol/L (136-145)
[2021-08-29 14:09] LABS: Alpha-1-Globulins 0.2 g/dL (0.0-0.4); Alpha-2-Globulins 0.7 g/dL (0.4-1.0); Gamma Globulin 1.7 g/dL (0.4-1.8); Immunoglobulin A 308 mg/dL (87-352); Immunoglobulin G 1738 mg/dL (586-1602); Immunoglobulin M 148 mg/dL (26-217); PROEL- TOTAL PROTEIN 7.9 g/dL (6.0-8.5)
== END | disposition home or self-care (01) ==
LOC: LAB 12:24
PROVIDERS: PCP Student in an Organized Health Care Education/Training Program; Referring Provider Internal Medicine Hematology & Oncology; Visit Provider Internal Medicine Hematology & Oncology
DX: R77.9 Abnormality of plasma protein, unspecified (principal)
CPT/HCPCS: 36415; 80053; 82784; 84165; 85025; 85652; 86140; 86334

== ENCOUNTER → 2021-09-09 | Outpatient (CLI) | payer BC, SELFPAY ==
[2021-09-11 14:10] LABS: Albumin, Ur 47.6 % (.); Alpha-1-Globulin, Ur 7.1 % (.); Beta Globulin, Ur 20.4 % (.); Gamma Globulin, Ur 5.9 % (.); M-Spike, Ur % Not Observed % (Not Observed); Protein, 24Ur 96 mg/24 hr (30-150); Total Protein, Ur 6.2 mg/dL (Not Estab.)
== END | disposition home or self-care (01) ==
PROVIDERS: PCP Student in an Organized Health Care Education/Training Program; Referring Provider Internal Medicine Hematology & Oncology; Visit Provider Internal Medicine Hematology & Oncology
DX: R77.9 Abnormality of plasma protein, unspecified (principal)
CPT/HCPCS: 81050; 84166; 86335

== ENCOUNTER 2021-11-19 07:27 | Day surgery (SDC) | payer BC, SELFPAY ==
[2021-11-19] VITALS (7 sets, daily range): BP systolic 105–122; BP diastolic 70–86; PULSE 67–82; RESP 16; TEMP 36.6–37.3; O2SAT 100; BMI 19.4
--- NOTE | 2021-11-19 08:04 | HP.PCM_ITS ---
History and Physical Date of Admission: 11/19/21 40 F who presents to the office today for Initial consultation. Karie established with this clinic 08.14.21 for evaluation of rectal bleeding. she began having some rectal bleeding that is mixed into her stool and noted when she wipes, this last for about two weeks and she has not had any further episodes. Denies history of this previously. PCP recommended she get a colonoscopy for evaluation. Denies weakness, fatigue SOB. Reports that she has hemorrhoids resulting from previous pregnancies that do not cause her any difficulty. GERD for which she is taking acid suppression PRN and this is effective. She had a bone scan done which she needed to stop this for and never restarted routinely. Takes PRN QOD. EGD with Dr. Owens 01.11.19 with no abnormalities reported. Biopsy revealed gastritis. H.pylori negative. US abdomen 06.14.21 without visual abnormalities. US pelvic and transvaginal 06.23.21 without chronic or acute findings in the abdomen. ROS Const Constitutional: No fatigue, malaise, night sweats, weight change, sleep pr oblems, abnormal sleep pattern or change in appetite ENT ENT: No difficulty swallowing, hoarseness or sore throat Cardio Cardiology: No chest pain at rest Gastro GI: No abdominal pain, belching, bloating, change in bowel habits, change in stool character, coffee ground emesis, constipation, cramping, diarrhea, heartburn, difficulty swallowing, feeling full early, excessive flatus, incontinent of stools, Vomiting blood/hematemesis, Blood in stool, loose stools, Black,tarry stools, nausea/dyspepsia, pain with swallowing, vomiting or other Musc Musculoskeletal: No joint pain Skin Skin: No yellowing of the eye or itchy eyes Neuro Neurology: No behavioral changes Psych Psychiatric: No abnormal sleep pattern, No anxiety, No behavioral changes, No change in appetite and No depression Endo Endocrine: No fatigue or weight change Aller/Imm Allergy/Immunologic: No itchy eyes Toni/Lymp Hematologic/Lymphatic: No easy bleeding or easy bruising Exam Const General: cooperative and comfortable Nutritional Appearance: average body habitus and well nourished HENMI Head: normal to inspection Ears: hearing grossly normal bilaterally Nose: external nose normal Face and sinus: normal facial exam Mouth: oral mucosae normal Throat: posterior oropharynx normal Eyes General: appearance normal, both eyes and all related structures Neck Neck: normal visual inspection Chest Chest palpation & inspection: normal inspection of the chest and normal palpation of entire chest wall Resp Effort & Inspection: normal respiratory effort Auscultation: Bilateral: Clear to Auscultation Cardio Palpation: normal PMI Rate: regular rate Rhythm: regular rhythm GI Inspection: normal to inspection Auscultation: normal bowel sounds Percussion: normal to percussion Palpation: no hepatosplenomegaly Skin General: no rashes or lesions noted Neuro General: patient alert Extrem General: normal to inspection Psych Affect: normal affect Quality Reporting Tobacco Screening ([facility]) Smoking Status: Never smoker Assessment and Plan Assessment and Plan (1) Family history of liver disease: ?Status:?Acute ? ? ? Orders:?Orders: ? HIV - [facility] Today ? ? ? Comprehensive Metabolic Profil Today ? ? ? CRP Today ? ? ? Ferritin Today ? ? ? LDH Today ? ? ? Hemoglobin A1c Today ? ? ? Prothrombin Time w/INR Today ? ? ? CBC W/Diff, Automated Today ? ? ? Erythrocyte Sed Rate Today ? ? ? Anti-Mitochondrial AB Today ? ? ? MOHAMUD Comprehensive Panel Today ? ? ? Hepatitis Panel Acute Today ? ? ? Angiotensin Convert Enzyme Today ? ? ? AFP, Tumor Marker Today ? ? ? ANCA Today ? ? ? Anti-Smooth Muscle ABS Today ? ? ? Ceruloplasmin Today ? ? ? Copper, Serum or Plasma Today ? ? ? Haptoglobin Today ? ? ? Ammonia Today ? ? ? Abdomen Limited Today ? ? ? Elastography Parenchyma/Organ Today ?Plan - Dr. Montiel Friend, DO: We will perform biochemical testing for any signs of chronic liver disease due to her strong family history of Werner.? She is concerned about taking antifungal therapy.? I told her if her liver work-up does not show any signs of scarring or inflammation that she should be safe with taking antifungal medications as long as her liver function tests and liver enzymes are monitored. (2) Rectal bleed: ?Status:?Acute ? ? ? Orders:?Orders: ? HIV - [facility] Today ? ? ? Comprehensive Metabolic Profil Today ? ? ? CRP Today ? ? ? Ferritin Today ? ? ? LDH Today ? ? ? Hemoglobin A1c Today ? ? ? Prothrombin Time w/INR Today ? ? ? CBC W/Diff, Automated Today ? ? ? Erythrocyte Sed Rate Today ? ? ? Anti-Mitochondrial AB Today ? ? ? MOHAMUD Comprehensive Panel Today ? ? ? Hepatitis Panel Acute Today ? ? ? Angiotensin Convert Enzyme Today ? ? ? AFP, Tumor Marker Today ? ? ? ANCA Today ? ? ? Anti-Smooth Muscle ABS Today ? ? ? Ceruloplasmin Today ? ? ? Copper, Serum or Plasma Today ? ? ? Haptoglobin Today ? ? ? Ammonia Today ? ? ? Abdomen Limited Today ? ? ? Elastography Parenchyma/Organ Today ?Plan - Dr. Montiel Friend, DO: She will undergo a colonoscopy due to rectal bleeding.? The differential diagnosis for her would be ulcerative colitis, hemorrhoidal bleeding, diverticular bleeding, less likely neoplasia or solitary rectal ulcer.? She was explained alternatives, risk, benefits including not withstanding bleeding, infection, sepsis, perforation, need for emergency to .? She will have an ASA 1. I have re-examined the patient. There are no clinical changes since date of exam.
[2021-11-19 08:08] LABS: Internal QC Validated? YES +Cl - CLEAR BKGD; Pregnancy, Urine Negative Negative
[2021-11-19] MEDS: Lactated Ringers 1,000 ML 15 ML IV (08:30)
--- NOTE | 2021-11-19 09:08 | OP.COLON_ITS ---
Patient Name: Karie Christensen Procedure Date: 11/19/2021 8:25 AM Date of : 1980 Age: 40 Procedure: Colonoscopy Indications: Hematochezia Providers: Dinesh Guerrero DO Medicines: Monitored Anesthesia Care Patient Profile: This is a 40 year old female. Refer to note in patient chart for documentation of history and physical. Last Colonoscopy: none. The patient's first colonoscopy is today. Complications: No immediate complications. Procedure: Pre-Anesthesia Assessment: - Prior to the procedure, a History and Physical was performed, and patient medications and allergies were reviewed. The patient is competent. The risks and benefits of the procedure and the sedation options and risks were discussed with the patient. All questions were answered and informed consent was obtained. Patient identification and proposed procedure were verified by the physician in the pre-procedure area. Mental Status Examination: alert and oriented. Airway Examination: normal oropharyngeal airway and neck mobility. Respiratory Examination: clear to auscultation. CV Examination: normal. Prophylactic Antibiotics: The patient does not require prophylactic antibiotics. Prior Anticoagulants: The patient has taken no previous anticoagulant or antiplatelet agents. ASA Grade Assessment: II - A patient with mild systemic disease. After reviewing the risks and benefits, the patient was deemed in satisfactory condition to undergo the procedure. The anesthesia plan was to use moderate sedation / analgesia (conscious sedation). Immediately prior to administration of medications, the patient was re-assessed for adequacy to receive sedatives. The heart rate, respiratory rate, oxygen saturations, blood pressure, adequacy of pulmonary ventilation, and response to care were monitored throughout the procedure. The physical status of the patient was re-assessed after the procedure. After I obtained informed consent, the scope was passed under direct vision. Throughout the procedure, the patient's blood pressure, pulse, and oxygen saturations were monitored continuously. The pediatric colonoscope was introduced through the anus and advanced to the terminal ileum. The colonoscopy was performed without difficulty. The patient tolerated the procedure well. The quality of the bowel preparation was good. Scope In: 8:44:27 AM Scope Withdrawal Time 0 hours 6 minutes 17 seconds Scope Out: 9:01:49 AM Total Procedure Duration Time 0 hours 17 minutes 22 seconds Findings: The perianal and digital rectal examinations were normal. Non-bleeding internal hemorrhoids were found during retroflexion. The hemorrhoids were Grade I (internal hemorrhoids that do not prolapse). The entire examined colon appeared normal on direct and retroflexion views. Impression: - Non-bleeding internal hemorrhoids. - The entire examined colon is normal on direct and retroflexion views. - No specimens collected. Recommendation: - Discharge patient to home. - Resume previous diet. - Continue present medications. - Repeat colonoscopy in 10 years for screening purposes. Procedure Code(s): --- Professional --- 18961, Colonoscopy, flexible; diagnostic, including collection of specimen(s) by brushing or washing, when performed (separate procedure) CPT copyright 2017 [employer]. All rights reserved. The codes documented in this report are preliminary and upon mine patrol review may be revised to meet current compliance requirements. Dinesh Guerrero DO 11/19/2021 9:07:34 AM This report has been signed electronically. Number of Addenda: 1 Note Initiated On: 11/19/2021 8:25 AM Addendum Number: 1 Addendum Date: 01/08/2022 6:16:39 AM MAC was used as sedation for this procedure. Dinesh Guerrero DO 01/08/2022 6:16:45 AM This report has been signed electronically.
== END 2021-11-19 09:54 | disposition home or self-care (01) ==
LOC: EN 07:28 → AC 07:29
PROVIDERS: Anesthesiology; PCP Student in an Organized Health Care Education/Training Program; Referring Provider Student in an Organized Health Care Education/Training Program; Visit Provider Internal Medicine Gastroenterology
PROC: 0DJD8ZZ Inspection of Lower Intestinal Tract, Via Natural or Artificial Opening Endoscopic (ICD-10-PCS; CPT 45378; principal; 2021-11-19 08:25)
DX: K64.0 First degree hemorrhoids (principal)
CPT/HCPCS: 45378; 81025; J7120; J2405

== ENCOUNTER → 2022-06-16 | Outpatient (CLI) | payer BC, SELFPAY ==
--- NOTE | 2022-06-16 08:57 | BI_ITS ---
MAMMOGRAPHY - BILATERAL SCREENING 3-D TOMOSYNTHESIS REASON FOR EXAM: Female, 41 years old. Routine screening PERTINENT HISTORY: Mother with breast cancer.. TECHNIQUE: 2-D mammograms and 3-D Tomosynthesis of the breast (s) were performed. CAD was performed. COMPARISON: 06/12/2021 FINDINGS: The breast composition is extremely dense fibroglandular tissue Scattered benign calcifications are seen. No dense spiculated masses or suspicious microcalcifications are identified. No architectural distortion is identified. There is no skin thickening or retraction. There has been no significant change since the prior study. BI/SCRN MAMM (CAD)W/DELANEY BILAT IMPRESSION: No mammographic signs of malignancy. Routine yearly mammograms recommended. ASSESSMENT CATEGORY: BIRADS Category 2: Benign. A letter regarding these results will be sent to the patient by the facility within 30 days. FOLLOW UP RECOMMENDATION: Yearly follow up mammogram recommended. (A) Approximately 10% of breast cancers are not detected by mammography. A normal mammogram should not delay biopsy of a clinically suspicious abnormality. Electronically Signed: Kike Hurd MD at 9:52 EDT ,
== END | disposition home or self-care (01) ==
PROVIDERS: PCP Student in an Organized Health Care Education/Training Program; Visit Provider Student in an Organized Health Care Education/Training Program
DX: Z12.31 Encounter for screening mammogram for malignant neoplasm of breast (principal)
CPT/HCPCS: 77063; 77067

== ENCOUNTER → 2023-06-16 | Outpatient (CLI) | payer OTHER, SELFPAY ==
--- NOTE | 2023-06-16 09:58 | BI_ITS ---
MAMMOGRAPHY - BILATERAL SCREENING REASON FOR EXAM: Female, 42 years old. Routine annual screening examination. PERTINENT HISTORY: Mother with breast cancer. TECHNIQUE: Digital bilateral breast delaney (3D mammographic acquisition) in the CC and MLO projections. 2-D mediolateral oblique (MLO) and craniocaudad (CC) views of both breasts were obtained. CAD: Full Field Digital Mammography with Computer Added Detection was performed. COMPARISON: Comparison is made with prior study dated June 16, 2022 and June 12, 2021. FINDINGS: Breast Composition: The breasts are extremely dense, which lowers the sensitivity of mammography. There are no dominant masses or suspicious calcifications. No other significant abnormalities are identified. There has been no significant change since the prior study. BI/SCRN MAMM (CAD)W/DELANEY BILAT IMPRESSION: Stable bilateral screening mammogram. Yearly follow-up mammogram recommended. (A) ASSESSMENT CATEGORY: BIRADS Category 1: Negative. A letter regarding these results will be sent to the patient by the facility within 30 days. Approximately 10% of breast cancers are not detected by mammography. A normal mammogram should not delay biopsy of a clinically suspicious abnormality. [id number] Electronically Signed: Roge North MD at 13:50 EDT ,
== END | disposition home or self-care (01) ==
PROVIDERS: PCP Student in an Organized Health Care Education/Training Program; Referring Provider Obstetrics & Gynecology; Visit Provider Obstetrics & Gynecology
DX: Z12.31 Encounter for screening mammogram for malignant neoplasm of breast (principal)
CPT/HCPCS: 77063; 77067

== ENCOUNTER → 2024-06-22 | Outpatient (CLI) | payer OTHER, SELFPAY ==
--- NOTE | 2024-06-22 09:13 | BI_ITS ---
EXAM: SCRN MAMM (CAD)W/DELANEY BILAT 06/22/2024 CLINICAL HISTORY: F, Age 43 y/o , SCREENING. History of mother with breast cancer. BREAST CANCER RISK ASSESSMENT: Not assessed. TECHNIQUE: Bilateral screening digital breast tomosynthesis with 2D and 3D images. Computer aided detection. COMPARISON: Prior exam(s) dating back to June 16, 2023.. FINDINGS: Bilateral Breast Mammographic Findings: No significant masses, calcifications or other abnormalities are identified. TISSUE DENSITY: The breast tissue is extremely dense which lowers the sensitivity of mammography. BI/SCRN MAMM (CAD)W/DELANEY BILAT IMPRESSION: Right Breast: BIRADS 1 NEGATIVE. Left Breast: BIRADS 1 NEGATIVE. OVERALL FINAL ASSESSMENT: BIRADS 1 NEGATIVE RECOMMENDATION: ROUTINE ANNUAL FOLLOW-UP Bilateral in 1 Year Normal interval followup mammograms are recommended in 12 months. A letter with findings and recommendations will be mailed to the patient. Reading Location: [place] [id number]
== END | disposition home or self-care (01) ==
LOC: OPBI 09:11
PROVIDERS: PCP Student in an Organized Health Care Education/Training Program; Referring Provider Obstetrics & Gynecology; Visit Provider Obstetrics & Gynecology
DX: Z12.31 Encounter for screening mammogram for malignant neoplasm of breast (principal)
CPT/HCPCS: 77063; 77067

== ENCOUNTER → 2024-07-10 | Outpatient (CLI) | payer OTHER, SELFPAY ==
--- NOTE | 2024-07-10 12:58 | US_ITS ---
PROCEDURE: TRANSVAGINAL NON- (USTVAG), 07/10/2024 REASON FOR EXAM: ADNEXAL MASS TECHNIQUE: Grayscale and color doppler transvaginal pelvic ultrasound was performed. COMPARISON: None FINDINGS: Uterus: 9.0 x 6.3 x 4.3 cm, Anteverted. Unremarkable echotexture. Endometrium: 9 mm, echogenic secretory appearance. Cervix: Nabothian cysts. Right ovary: Not definitely visualized. A candidate structure measured at 1.8 x 1.0 x 0.9 cm (estimated volume 0.9 mL). Unclear if this reflects a lymph node or the RIGHT ovary. No follicles are demonstrated in this structure, as are seen in the LEFT ovary. Left ovary: 4.3 x 2.7 x 2.9 cm (estimated volume 9.6 mL). Peripherally vascular thick-walled structure measuring 1.4 x 1.0 cm with crenulated internal margin is compatible with a corpus luteal cyst. Free fluid: None visualized. Other: None. US/Transvaginal Non- IMPRESSION: 1. No visualized adnexal mass, noting questionable visualization of the RIGHT o vary. Correlate with the laterality of the suspected adnexal mass and given questionable visualization of the RIGHT ovary, consider CT/MRI as clinically indicated. 2. 1.4 cm LEFT ovarian structure is favorable for a corpus luteal cyst. 3. Additional description as above. Reading Location: [id number]
== END | disposition home or self-care (01) ==
LOC: US 12:56
PROVIDERS: PCP Student in an Organized Health Care Education/Training Program; Referring Provider Obstetrics & Gynecology; Visit Provider Obstetrics & Gynecology
DX: E27.9 Disorder of adrenal gland, unspecified (principal)
CPT/HCPCS: 76830

== ENCOUNTER → 2024-07-25 | Outpatient (CLI) | payer OTHER, SELFPAY ==
--- NOTE | 2024-07-25 10:18 | MRI_ITS ---
EXAM: PELVIS W/WO CONTRAST 07/25/2024 CLINICAL HISTORY: ADNEXAL MASS. Abdominal discomfort. TECHNIQUE: MRI of the pelvis was performed. Multiplanar and multisequence images were obtained with intravenous gadolinium contrast. CONTRAST: Clariscan VOLUME: 13 mL Gauge IV COMPARISON: Ultrasound exam on 07/10/2024. FINDINGS: Anteverted, anteflexed uterus measuring 9.1 x 4.8 x 5.8 cm in its largest craniocaudal, anteroposterior and transverse dimensions respectively. The endometrium is normal in thickness measuring 4.7 mm. Thinning of the lower aspect of the anterior myometrial wall, probably secondary to prior surgical intervention. Scattered nabothian cysts of the cervix with the largest measuring 1.2 cm, benign chronic finding. Normal vagina. Normal right ovary measuring 2.7 x 2.5 x 2.6 cm. The left ovary measures 3.3 x 2.7 x 2.8 cm. Left ovarian simple cyst measuring 1.7 cm. Another left ovarian cyst is noted measuring 8.3 mm containing hemorrhagic products, possibly hemorrhagic cyst versus endometrioma. No free fluid in the pelvic cul-de-sac. Moderate amount of fecal residue in the cecum. Normal bladder. Normal visualized bowels. Unremarkable visualized anterior abdominal wall. MRI/Pelvis W/WO Contrast IMPRESSION: 1. Thinning of the lower aspect of the anterior myometrial wall, probably secon vasyl to prior surgical intervention. 2. Scattered nabothian cysts of the cervix with the largest measuring 1.2 cm, b enign chronic finding. 3. Left ovarian simple cyst measuring 1.7 cm. 4. Another left ovarian cyst is noted measuring 8.3 mm containing hemorrhagic p roducts, possibly hemorrhagic cyst versus endometrioma. 5. No free fluid in the pelvic cul-de-sac. 6. Moderate amount of fecal residue in the cecum. Reading [facility] [id number]
== END | disposition home or self-care (01) ==
PROVIDERS: PCP Student in an Organized Health Care Education/Training Program; Referring Provider Obstetrics & Gynecology; Visit Provider Obstetrics & Gynecology
DX: E27.9 Disorder of adrenal gland, unspecified (principal)
CPT/HCPCS: 72197; A9575

== ENCOUNTER 2024-08-31 09:51 | Outpatient (REF) | payer OTHER, SELFPAY ==
[2024-08-31 09:51] VITALS: BP 119/91; PULSE 79; RESP 14; TEMP 35.6; O2SAT 98; BMI 20.2
--- NOTE | 2024-08-31 10:16 | EX.ED.UPPERE ---
HPI History of Present Illness Chief Complaint: Upper Extremity Injury Detail of Chief Complaint: Needlestick blood exposure Informant: patient Narrative Narrative: Patient presents to the emergency department with accidental needlestick to her right index finger that occurred around 9 AM. Patient [id number]. Patient was D accessing patient's port when she accidentally poked herself into the right index finger. She washed her hands immediately. Patient being treated for cancer. Patient does not have known history of HIV or hepatitis. PFSH PFSH Medical History (Updated 08/31/24 @ 10:[address] Lindsey Giles, DO) Alcohol use Non-smoker History of stress test MVP (mitral valve prolapse) GERD (gastroesophageal reflux disease) Home Medications ?Medication ?Instructions ?Recorded ?Last Taken ?Type NK 11/18/21 Unknown History Allergy/AdvReac Type Severity Reaction Status Date / Time No Known Allergies Allergy Verified 08/31/24 09:52 Family History Mother Diabetes Thyroid disorder Breast cancer Ulcer Father Hyperlipidemia Surgical History (Updated 11/18/21 @ 11:09 by Barbara Barron) Hx of dilation and curettage Hx of esophagogastroduodenoscopy History of section (~2012) History of section (~2010) Social History (Updated 12/21/18 @ 13:[address] Adolph Owens MD) Smoking Status: Never smoker ROS ROS ED Review of Systems ROS Unobtainable: other Constitutional Constitutional ED: Reports lethargy; Denies chills, fever(s), sweats or weight loss Eyes Eyes: Denies blurry vision, change in vision or diplopia ENT ENT ED: Denies rhinorrhea or sore throat Cardiovascular Cardiovascular: Denies chest pain, orthopnea or racing heartbeat Respiratory/Chest Respiratory/Chest: Denies cough, dyspnea, dyspnea on exertion, orthopnea or sputum Gastrointestinal Gastrointestinal: Denies abdominal pain, diarrhea, nausea or vomiting Genitourinary Genitourinary ED: Denies dysuria, hematuria or urinary frequency Musculoskeletal Musculoskeletal: Reports other Details: Needlestick to the right index finger ; Denies arthralgias, back pain, myalgias or neck pain Integumentary Denies abscess, Abrasions or rash Neurologic Neurologic: Denies headache(s) or weakness Psychiatric Psychiatric: Denies anxiety, depression or suicidal thoughts Endocrine Endocrinology: Denies polydipsia, polyphagia or polyuria Hematologic/Lymphatic Hematologic/Lymphatic: Denies easy bleeding, easy bruising or lymphadenopathy Allergic/Immunologic Allergic/Immunologic ED: Denies mouth swelling, tongue swelling or urticaria EXAM Physical Exam Const Vital Signs: 08/31/24 09:51 Temperature 96.1 F L Temperature Source Temporal Pulse Rate 79 Respiratory Rate 14 Blood Pressure 119/91 H Blood Pressure Mean 100 Pulse Ox 98 Oxygen Delivery Method Room Air Positive well nourished and well developed General Appearance ED: well developed and NAD HEENT Reports TM's clear and moist mucous membranes normocephalic and atraumatic; Negative for trauma or tenderness Tympanic Membrane ED: Yes TM's clear Eyes PERRL and EOMs intact bilaterally General Eye ED: Negative for pale conjunctiva or scleral icterus Neck no lymphadenopathy, supple and no JVD General: Negative for tenderness Chest Wall inspection of chest normal and palpation of chest normal Chest: Negative for tenderness Resp normal respiratory effort and clear to auscultation bilaterally Effort and Inspection: Negative for respiratory distress or pain with movement Auscultation: Negative for rhonchi, wheezes or diminished lung sounds Cardio regular rate, regular rhythm, S1 normal heart sound, S2 normal heart sound and no murmurs Peripheral Pulses: pulses 2+ throughout GI normal to inspection, nondistended, normoactive bowel sounds, soft to palpation, non-tender, non-distended and no masses Back/Spine no CVA tenderness and no thoracic nor lumbar tenderness Extremity Extremity Narrative: Right index finger-patient has a punctate puncture wound without any bleeding to the dorsal lateral aspect of the distal phalanx. No erythema. Normal range of motion. Normal strength in flexion extension. General Extremety ED: Negative for edema General Extremity: Negative for edema Neuro oriented x3, CN's II-XII intact bilaterally, no sensory deficits noted and gait normal Sensorium / Orientation: awake, alert, oriented to person, oriented to place and oriented to time Motor Exam: strength 5/5 throughout and strength abnormal Psych mental status grossly normal Skin no rashes or lesions noted and no wounds MDM MDM MDM Narrative Medical decision making narrative: Patient presents the emergency department with a dirty needle stick to the right index finger. Patient was concerned about potentially transferring cancer cells to her person. No known history of the person to have HIV or hepatitis. I feel transfer of cancer cells to patient extremely unlikely. I feel this is a very low risk for transferring hepatitis or HIV and do not feel patient needs PEP prophylaxis. Will obtain exposure labs for the patient. Recommend she follow-up with employee health within the next 5 to 7 days. Discharge Plan Triage Chief Complaint: Upper Extremity Injury ED Provider: Lindsey Giles Dx/Rx/DC Orders Clinical Impression: Employee exposure to blood Instructions: ED NEEDLE STICK Health Care Worker Prescriptions: No Action NK Primary Care Provider: Harjeet Villanueva Referrals: Harjeet Villanueva DO [Primary Care Provider] - Health,Employee [Non-Staff -Ordering Privileges] - 5-7 Days Print Language: Malawian Disposition Disposition: Home, Self Care
[2024-08-31 11:01] VITALS: BP 119/91; PULSE 79; RESP 14; TEMP 35.6; O2SAT 98
[2024-08-31 11:40] LABS: Hepatitis B Surface Antibody Nonreactive
[2024-08-31 11:45] LABS: Hepatitis B Surface Antigen Nonreactive (Nonreactive); Hepatitis C Antibody Nonreactive (Nonreactive)
[2024-09-01 05:19] LABS: HIV Nonreactive (Nonreactive)
== END 2024-08-31 11:02 | disposition home or self-care (01) ==
LOC: ED 09:51
PROVIDERS: PCP Student in an Organized Health Care Education/Training Program; Visit Provider Emergency Medicine
DX: L76.11 Accidental puncture and laceration of skin and subcutaneous tissue during a dermatologic procedure (principal); Y65.8 Other specified misadventures during surgical and medical care; Y92.239 Unspecified place in hospital as the place of occurrence of the external cause; Z77.21 Contact with and (suspected) exposure to potentially hazardous body fluids
CPT/HCPCS: 86703; 86706; 86803; 87340

== ENCOUNTER → 2024-10-10 | Outpatient (CLI) | payer OTHER, SELFPAY | END | disposition home or self-care (01) | LOC: LAB 13:49 | PROVIDERS: PCP Student in an Organized Health Care Education/Training Program | DX: Z11.59 Encounter for screening for other viral diseases (principal) | CPT/HCPCS: 86706 ==

== ENCOUNTER 2024-12-06 08:59 | Emergency (ER) | payer OTHER, SELFPAY ==
[2024-12-06] VITALS (7 sets, daily range): BP systolic 96–123; BP diastolic 65–84; PULSE 68–102; RESP 14–18; TEMP 36.5–37.1; O2SAT 98–100; BMI 19.8
--- NOTE | 2024-12-06 09:10 | EKG12_ITS ---
Test Reason : CHEST PAIN Blood Pressure : */* mmHG Vent. Rate : 90 BPM Atrial Rate : 90 BPM P-R Int : 142 ms QRS Dur : 76 ms QT Int : 356 ms P-R-T Axes : 82 21 87 degrees QTcB Int : 435 ms Normal sinus rhythm with sinus arrhythmia Possible Left atrial enlargement Septal infarct , age undetermined Abnormal ECG Confirmed by Efrain Maravilla ([id number]), editor managing newspaper REYNA DAILEY ([id number]) on 12/08/2024 6:43:22 AM Referred By: Confirmed By: Efrain Maravilla
--- NOTE | 2024-12-06 09:10 | RAD_ITS ---
PROCEDURE: CHEST 1 VIEW (PORTABLE) 12/06/2024 REASON FOR EXAM: CHEST PAIN TECHNIQUE: Frontal view of the chest. COMPARISON: December 12, 2018 FINDINGS: Hardware: EKG leads Heart: Normal Lungs: Clear. No pneumothorax or pleural effusion. Bones: The bones are unremarkable. RAD/Chest 1 View (Portable) IMPRESSION: No acute abnormality Reading Location: [id number]
--- NOTE | 2024-12-06 09:15 | EKG12_ITS ---
Test Reason : CHEST PAIN Blood Pressure : */* mmHG Vent. Rate : 89 BPM Atrial Rate : 89 BPM P-R Int : 142 ms QRS Dur : 78 ms QT Int : 384 ms P-R-T Axes : 75 29 81 degrees QTcB Int : 467 ms Normal sinus rhythm Nonspecific T wave abnormality Abnormal ECG baseline artifact Confirmed by Efrain Maravilla ([id number]), news copy editor REYNA DAILEY ([id number]) on 12/12/2024 6:11:06 AM Referred By: Confirmed By: Efrain Maravilla
--- NOTE | 2024-12-06 09:19 | ED.VIS.CHEST ---
HPI History of Present Illness Chief Complaint: Chest Pain Informant: patient Onset/Context/Timing Onset: Today Activity at onset: gradual Timing: Waxes and wanes Quality: Positive for Pressure, Tightness and - (Squeezing) Location: Left Chest Worsened By: Nothing Relieved By: Nothing Associated Symptoms: Positive for Nausea, Dyspnea and Palpitations; Negative for Vomiting, Diaphoresis, Cough, Fever, Lightheadedness or Acid Reflux Narrative Narrative: Patient presents with chest pain that began earlier this morning approximately 6 hours prior to arrival. Patient states she woke up with it. Patient states has been waxing and waning throughout the day. Patient describes it as tightness, pressure, and squeezing. Patient states it is over the left side of her chest. Patient states nothing makes it worse and nothing makes it better. Patient does admit to some shortness of breath with this. Patient also admits to a feeling of her heart racing. Patient admits to some nausea but denies any vomiting. Patient states she also has some numbness in her left arm. Patient denies any weakness. Patient denies any fevers or chills. CVD Risk Factors: Positive for Family History 1' </=55; Negative for Hypertension, Diabetes, Hypercholesterolemia or Smoking PE Risk Factors: Negative for Recent Travel/Surgery, Recent Immobilization, Prior DVT or PE or Cancer [facility] Medical History Chest pain Employee exposure to blood MVP (mitral valve prolapse) Elevated blood protein Family history of liver disease GERD (gastroesophageal reflux disease) Home Medications ?Medication ?Instructions ?Recorded ?Last Taken ?Type multivitamin 1 tab PO QDAY 11/27/24 Unknown History Allergy/AdvReac Type Severity Reaction Status Date / Time No Known Allergies Allergy Verified 12/06/24 09:01 Family History (Updated 11/27/24 @ 09:09 by Sabina Davis RN) Mother Diabetes Thyroid disorder Breast cancer Ulcer Father Hyperlipidemia Sister Liver disease Surgical History Hx of dilation and curettage Hx of esophagogastroduodenoscopy History of section (~2012) History of section (~2010) Social History housing: house current occupational status: employed Smoking Status: Never smoker alcohol intake: current substance use type: does not use ROS ROS ED Constitutional Constitutional ED: Denies chills or fever(s) Eyes Eyes: Denies blurry vision or change in vision ENT ENT ED: Denies rhinorrhea or sore throat Cardiovascular Cardiovascular: Reports as per HPI, chest pain, palpitations and racing heartbeat Respiratory/Chest Respiratory/Chest: Reports dyspnea; Denies cough Gastrointestinal Gastrointestinal: Reports nausea; Denies vomiting Genitourinary Genitourinary ED: Denies dysuria or hematuria Musculoskeletal Musculoskeletal: Denies back pain or neck pain Integumentary Denies abscess or rash Neurologic Neurologic: Reports paresthesias LUE; Denies headache(s) or weakness Allergic/Immunologic Allergic/Immunologic ED: Denies mouth swelling or urticaria EXAM Physical Exam Const Vital Signs: 12/06/24 08:59 12/06/24 09:09 12/06/24 09:21 Temperature 97.7 F L Temperature Source Oral Pulse Rate 90 102 H Respiratory Rate 16 Respiratory Effort Normal Blood Pressure 123/84 H 118/84 H Blood Pressure Mean 97 Pulse Ox 100 Oxygen Delivery Method Room Air 12/06/24 09:23 12/06/24 09:59 12/06/24 11:10 Temperature Temperature Source Pulse Rate 92 68 Respiratory Rate 18 14 Respiratory Effort Blood Pressure 102/78 117/78 Blood Pressure Mean 86 91 Pulse Ox 98 98 Oxygen Delivery Method Room Air Room Air Room Air 12/06/24 11:37 12/06/24 11:44 Temperature Temperature Source Pulse Rate 75 91 Respiratory Rate Respiratory Effort Blood Pressure 104/81 H 103/72 Blood Pressure Mean Pulse Ox Oxygen Delivery Method Positive well nourished and well developed Constitutional Narrative: BMI is 19.9 General Appearance ED: well developed and NAD HEENT Reports moist mucous membranes Neck supple and no JVD Chest Wall palpation of chest normal Resp normal respiratory effort and clear to auscultation bilaterally Cardio regular rate and regular rhythm GI soft to palpation, non-tender and non-distended Neuro oriented x3, CN's II-XII intact bilaterally and no sensory deficits noted Sensorium / Orientation: awake and alert Motor Exam: strength 5/5 throughout Psych mental status grossly normal Heart Score History: Slightly/Non-Suspicious ECG: Nonspecific Repolarization Age: </= 45 years Risk Factors: 1 or 2 Risk Factors Troponin: </= Normal Limit Score: 2 MDM MDM MDM Narrative Medical decision making narrative: Differential diagnosis includes cardiac dysrhythmia, cardiac ischemia, pneumonia, bronchitis, gastroesophageal reflux disease, mitral valve prolapse, and pulmonary embolism. EKG will be obtained to assess for cardiac dysrhythmia and cardiac ischemia. Chest x-ray will be obtained to assess for pneumonia and bronchitis. CBC will be obtained to assess for leukocytosis and anemia. Basic metabolic profile will be obtained to assess for electrolyte abnormality and renal function. High-sensitivity troponin will be obtained to assess for cardiac ischemia. 2-hour repeat high-sensitivity troponin will be obtained to assess for ongoing cardiac ischemia. D-dimer will be obtained to assess for pulmonary embolism. Lab Data Attestation: I reviewed the patient's lab results. Lab results narrative: CBC was reviewed and was within normal limits. Basic metabolic profile was reviewed and was within normal limits. Initial high-sensitivity troponin was reviewed and was less than 6. D-dimer was reviewed and was normal at 0.27. 2-hour repeat high-sensitivity troponin was reviewed and was less than 6. Labs: Laboratory Results - last 24 hr 12/06/24 12/06/24 09:20 11:11 WBC 9.2 RBC 4.24 Hgb 13.5 Hct 38.9 MCV 91.7 MCH 31.8 MCHC 34.7 RDW Std Deviation 40.5 RDW Coeff of Angel 12.0 Plt Count 249 MPV 9.7 Immature Gran % (Auto) 0.400 Neut % (Auto) 80.6 H Lymph % (Auto) 12.8 L Clinch % (Auto) 5.3 Eos % (Auto) 0.5 Baso % (Auto) 0.4 Absolute Neuts (auto) 7.4 Absolute Lymphs (auto) 1.18 Nucleated RBC % 0 D-Dimer Quant (PE/DVT) 0.27 Sodium 137 Potassium 3.9 Chloride 102 Carbon Dioxide 23.4 Anion Gap 12 BUN 10 Creatinine 0.63 L Estim Creat Clear Calc 106.68 Est GFR (MDRD) Non-Af 112 BUN/Creatinine Ratio 15.7 Glucose 95 Calcium 9.8 Troponin T High Sens < 6 Troponin T Hi Sens 2 Hr < 6 Radiography Chest X-Ray - ED: 1 View, Read by ED Physician, Read by Radiologist and No Acute Disease Diagnostic Testing: Clinical Impression(s) from Imaging Studies Chest X-Ray 12/06/24 09:10 IMPRESSION: No acute abnormality Reading Location: [facility] Portable 1 view chest x-ray was obtained. On my independent interpretation, lung vides are clear. There is normal cardiac silhouette. Bony thorax is normal. There is no acute process noted. Radiologist also interpreted the x-ray and agrees. EKG Initial EKG: Attestation: I personally reviewed and interpreted this EKG as follows: Interpretation: Sinus Rhythm (90) and Non-Specific ST Changes Comments: EKG was obtained. On my independent interpretation, it showed a normal sinus rhythm with a rate of 90. [place] interval, QRS interval, and QTc intervals were all normal. Irwin was normal. There are nonspecific ST-T wave changes. Prior EKG tracings: available for review Prior: Changed (Compared to EKG dated 12/12/2018, there are nonspecific T wave inversions in V4 through V6) Treatment and Re-Evaluation :: Patient was given aspirin and sublingual nitroglycerin. Patient was feeling better on reevaluation. Patient was advised of her findings. Patient has a HEART score of 2. Patient was advised that this is low risk for acute cardiac event. Patient was instructed to follow-up with her primary care physician in 5 to 7 days. Patient was instructed to return if worse in any way. Patient understood and was agreeable with the plan. All questions were answered. Discharge Plan Triage Chief Complaint: Chest Pain ED Provider: Bry El Dx/Rx/DC Orders Clinical Impression: Chest pain, MVP (mitral valve prolapse) Instructions: ED Chest Pain, Uncertain Cause Prescriptions: No Action multivitamin Tablet 1 tab PO QDAY Primary Care Provider: Harjeet Villanueva Referrals: Harjeet Villanueva DO [Primary Care Provider] - 5-7 Days Print Language: Zimbabwean Disposition Disposition: Home, Self Care
[2024-12-06] MEDS: Nitroglycerin SL (ED/IMG/CATH) 0.4 MG TABLET SL ×3 (09:21→11:44)
[2024-12-06 09:31] LABS: Hematocrit 38.9 % (37-47); Hemoglobin 13.5 g/dL (12.0-15.0); Immature Granulocytes Count 0.040 X10^3/uL (0.0-0.0); Mean Corp Hgb Conc 34.7 g/dL (32-36); Mean Corpuscular Volume 91.7 fL (81-99); Mean Platelet Vol. 9.7 fl (6.2-12.0); NRBC Flagged by Analyzer 0 % (0-5); Platelet Count 249 K/mm3 (150-450); RBC Distribution Width CV 12.0 % (11.6-14.6); RBC Distribution Width SD 40.5 fl (35.1-43.9); Red Blood Count 4.24 M/mm3 (4.2-5.4); White Blood Count 9.2 K/mm3 (4.4-11.0)
[2024-12-06 09:53] LABS: Anion Gap 12 (5-15); BUN 10 mg/dL (4-19); BUN/Creat Ratio 15.7 RATIO (10-20); Calcium,Total 9.8 mg/dL (7.6-11.0); Carbon Dioxide 23.4 mmol/L (21.0-32.0); Chloride 102 mmol/L (98-108); Estimated Creatinine Clearance 106.68 ml/min (50-250); Glucose 95 mg/dL (70-99); Potassium 3.9 mmol/L (3.3-5.1); Troponin T High Sensitivity < 6 ng/L (<=14)
[2024-12-06 11:00] LABS: D-Dimer Quantitative (DVT/PE) 0.27 FEU/ug/m (0.27-0.49)
[2024-12-06 11:42] LABS: Troponin T High Sens 2 HR < 6 ng/L (<=14)
== END 2024-12-06 12:16 | disposition home or self-care (01) ==
PROVIDERS: Emergency Provider Emergency Medicine; PCP Student in an Organized Health Care Education/Training Program; Visit Provider Emergency Medicine
DX: I34.1 Nonrheumatic mitral (valve) prolapse (principal); R07.89 Other chest pain
CPT/HCPCS: 71045; 80048; 84484; 85025; 85379; 93005; 99284

== ENCOUNTER → 2025-01-12 | Outpatient (CLI) | payer OTHER, SELFPAY | END | disposition home or self-care (01) | LOC: PSN 06:59 | PROVIDERS: PCP Student in an Organized Health Care Education/Training Program; Referring Provider Internal Medicine Cardiovascular Disease; Visit Provider Internal Medicine Cardiovascular Disease | DX: I34.1 Nonrheumatic mitral (valve) prolapse (principal) | CPT/HCPCS: 93225; 93226 ==

== ENCOUNTER → 2025-01-25 | Outpatient (CLI) | payer OTHER, SELFPAY | END | disposition home or self-care (01) | LOC: CVS 08:53 | PROVIDERS: PCP Student in an Organized Health Care Education/Training Program; Referring Provider Internal Medicine Cardiovascular Disease; Visit Provider Internal Medicine Cardiovascular Disease | DX: I34.1 Nonrheumatic mitral (valve) prolapse (principal) | CPT/HCPCS: 93306 ==

== ENCOUNTER → 2025-02-15 | Outpatient (CLI) | payer OTHER, SELFPAY ==
[2025-02-15 12:34] LABS: Hematocrit 39.3 % (37-47); Hemoglobin 13.2 g/dL (12.0-15.0); Immature Granulocytes Count 0.020 X10^3/uL (0.0-0.0); Mean Corp Hgb Conc 33.6 g/dL (32-36); Mean Corpuscular Volume 93.3 fL (81-99); Mean Platelet Vol. 10.2 fl (6.2-12.0); NRBC Flagged by Analyzer 0 % (0-5); Platelet Count 241 K/mm3 (150-450); RBC Distribution Width CV 11.7 % (11.6-14.6); RBC Distribution Width SD 40.0 fl (35.1-43.9); Red Blood Count 4.21 M/mm3 (4.2-5.4); White Blood Count 7.9 K/mm3 (4.4-11.0)
[2025-02-15 13:24] LABS: AST(SGOT) 14 U/L (<=31); Alanine Aminotransfer ALT/SGPT 9 U/L (<=34); Albumin, Serum 4.5 g/dL (3.5-5.0); Alkaline Phosphatase 59 U/L (35-104); Anion Gap 10 (5-15); BUN 13 mg/dL (4-19); BUN/Creat Ratio 20.8 RATIO (10-20); Calcium,Total 9.3 mg/dL (7.6-11.0); Carbon Dioxide 25.0 mmol/L (21.0-32.0); Chloride 103 mmol/L (98-108); Globulin 3.4 g/dL (2.2-4.2); Glucose 90 mg/dL (70-99); Lipase 28 U/L (13-75); Potassium 3.6 mmol/L (3.3-5.1)
== END | disposition home or self-care (01) ==
LOC: LAB 08:43
PROVIDERS: PCP Student in an Organized Health Care Education/Training Program; Referring Provider Family Medicine; Visit Provider Family Medicine
DX: R10.13 Epigastric pain (principal)
CPT/HCPCS: 36415; 80053; 83690; 85025

== ENCOUNTER → 2025-02-22 | Outpatient (CLI) | payer OTHER, SELFPAY ==
--- NOTE | 2025-02-22 07:59 | US_ITS ---
PROCEDURE: ABDOMEN LIMITED 02/22/2025 REASON FOR EXAM: EPIGASTRIC PAIN TECHNIQUE: Procedure Code: USABDL Modality: US Procedure: ABDOMEN LIMITED COMPARISON: June 14, 2021. FINDINGS: Liver: Grossly normal size and echotexture. The liver measures 17.6 cm. There is a 6 mm x 6 mm x 7 mm hemangioma in the left lobe of the liver. Gallbladder: No stones, sludge, wall thickening or tenderness. Common bile duct: Normal measuring 3.5 mm. . Pancreas: Normal Other: Visualized portions of the right kidney are unremarkable. No right upper quadrant ascites. US/Abdomen Limited IMPRESSION: 6 mm x 6 mm x 7 mm hemangioma in the left lobe of the liver. No other abnormal ity is seen. Reading Location: [id number]
== END | disposition home or self-care (01) ==
LOC: US 07:58
PROVIDERS: PCP Student in an Organized Health Care Education/Training Program; Referring Provider Family Medicine; Visit Provider Family Medicine
DX: K21.9 Gastro-esophageal reflux disease without esophagitis (principal)
CPT/HCPCS: 76705